=== PATIENT | male | born 1975 | race American Indian/Alaskan Native ===

== ENCOUNTER 2017-02-06 08:02 | Emergency (ER) | payer OTHER ==
[2017-02-06] MEDS ORDERED: NORCO 5/325 PO ONE (16:16)
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
--- NOTE | 2017-02-06 17:37 | Cat Scan Report ---
FINAL REPORT PROCEDURE: CT HEAD/BRAIN WO CON TECHNIQUE: Computerized tomography of the head was performed without contrast material. HISTORY: headache COMPARISON: No prior studies are available for comparison. FINDINGS: No CT evidence of intracranial mass, hemorrhage, acute territorial infarction, or hydrocephalus. The intracranial arteries are symmetric in density. There is right frontal scalp soft tissue swelling. Calvarium is intact. Visualized paranasal sinuses and mastoids are aerated. IMPRESSION: No CT evidence of acute intracranial abnormality
[2017-02-06 18:47] VITALS: BP 128/85
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
--- NOTE | 2017-02-07 07:15 | XRay Report ---
RIGHT SHOULDER: History: Right shoulder pain. Routine views demonstrate normal bony and soft tissue structures with normal joint alignment of the shoulder. IMPRESSION: Normal study.
--- NOTE | 2017-02-07 07:16 | XRay Report ---
LEFT HAND, ONE VIEW History: Left hand pain. Findings: This film was erroneously marked as the right hand. A pulse ox device overlies the distal first digit. No gross osseous abnormality or joint pathology is appreciated on single view. Impression: Unremarkable exam.
--- NOTE | 2017-02-07 07:17 | XRay Report ---
AP AND LATERAL SOFT TISSUES OF THE NECK: History: Pain. The contour of the upper airway appears within normal limits. The epiglottis is not enlarged. No prevertebral soft tissue swelling is apparent. No mass density or foreign body is evident. IMPRESSION: Unremarkable exam.
--- NOTE | 2017-02-07 07:17 | XRay Report ---
RIGHT KNEE, 2 views: History: Right knee pain. The bony architecture is intact without evidence of fracture or dislocation. No significant soft tissue abnormality is seen. IMPRESSION: Unremarkable right knee
== END 2017-02-06 20:38 | disposition home or self-care (01) ==
LOC: ED 08:02
DX: S01.511A Laceration without foreign body of lip, initial encounter (principal); M25.511 Pain in right shoulder; M25.561 Pain in right knee; M79.642 Pain in left hand; G44.319 Acute post-traumatic headache, not intractable; Y04.8XXA Assault by other bodily force, initial encounter; Y93.89 Activity, other specified; Y92.89 Other specified places as the place of occurrence of the external cause; Y99.8 Other external cause status
CPT/HCPCS: 70360; 70450; 99285